=== PATIENT | female | born 1995 | race Two or more races ===

== ENCOUNTER 2016-12-28 14:48 | Emergency (ER) | payer MEDICAID ==
[~2016-12-28] VITALS: Ht 165.1 cm; Wt 67.0 kg
[~2016-12-28 14:48] MED LIST: PREN-88 PO
[2016-12-28 14:55] VITALS: BP 106/72
[2016-12-28] MEDS ORDERED: FERR-63 PO (14:57)
== END 2016-12-28 19:10 | disposition left against medical advice (07) ==
LOC: ER 19:10
DX: R10.9 Unspecified abdominal pain (principal); Z53.21 Procedure and treatment not carried out due to patient leaving prior to being seen by health care provider

== ENCOUNTER 2019-08-24 21:45 | Emergency (ER) | payer MEDICAID ==
[~2019-08-24] VITALS: Ht 162.6 cm; Wt 60.0 kg
[~2019-08-24 21:45] MED LIST changes: +FERR-63 PO
[2019-08-25 00:56] VITALS: BP 125/75
== END 2019-08-25 03:21 | disposition left against medical advice (07) ==
LOC: ER 21:45
DX: R11.2 Nausea with vomiting, unspecified (principal); Z53.21 Procedure and treatment not carried out due to patient leaving prior to being seen by health care provider

== ENCOUNTER 2023-10-17 14:21 | Emergency (ER) | payer MEDICAID ==
[~2023-10-17] VITALS: Ht 162.6 cm; Wt 58.0 kg
[2023-10-17 14:36] VITALS: O2SAT 100
[2023-10-17] MEDS ORDERED: NAPR-681 MT (16:00)
[2023-10-17] MEDS: KETOROLAC 15MG/ML VIAL IM ONE (16:25)
[2023-10-17 16:34] VITALS: BP 103/68; PULSE 75; RESP 16; TEMP 98.4
== END 2023-10-17 18:04 | disposition home or self-care (01) ==
LOC: ER 14:21
DX: S63.501A Unspecified sprain of right wrist, initial encounter (principal); F12.90 Cannabis use, unspecified, uncomplicated; D64.9 Anemia, unspecified; Y08.89XA Assault by other specified means, initial encounter; Y93.89 Activity, other specified; Y92.89 Other specified places as the place of occurrence of the external cause; Y99.8 Other external cause status
CPT/HCPCS: 73110; 73130; 29125; 99284; J1885; Z7610

== ENCOUNTER 2024-11-28 12:28 | Emergency (ER) | payer MEDICAID ==
[~2024-11-28] VITALS: Ht 162.6 cm; Wt 54.0 kg
[~2024-11-28 12:28] MED LIST changes: +NAPR-681 MT
[2024-11-28 12:44] VITALS: O2SAT 98
[2024-11-28 12:50] VITALS: BP 102/72; PULSE 69; RESP 18; TEMP 36.8; O2SAT 100
[2024-11-28] MEDS ORDERED: TOPUD PO (14:30)
[2024-11-28] MEDS ORDERED: IBUP-2029 PO (14:30)
== END 2024-11-28 15:04 | disposition home or self-care (01) ==
LOC: ER 12:28
DX: N64.4 Mastodynia (principal); D64.9 Anemia, unspecified; F12.90 Cannabis use, unspecified, uncomplicated; Z90.710 Acquired absence of both cervix and uterus
CPT/HCPCS: 99281; 99282